=== PATIENT | male | born 1960 | race African-American/Black ===

== ENCOUNTER 2023-10-04 15:59 | Emergency (ER) | payer MEDICAID, OTHER ==
[~2023-10-04] VITALS: Ht 172.7 cm; Wt 68.0 kg
[2023-10-04 16:09] VITALS: O2SAT 98
[2023-10-04 17:08] LABS: BASOPHILS % 0.6 % (0.0-2.0); EOSINOPHILS % 1.5 % (0.0-5.0); HEMATOCRIT. 44.1 % (42.0-52.0); HEMOGLOBIN. 14.5 g/dL (14.0-18.0); LYMPHOCYTES % 18.7 % (20.0-50.0); MEAN CORPUSCULAR HEMOGLOBIN 30.9 pg (28.0-32.0); MEAN CORPUSCULAR HGB CONC 32.9 g/dL (31.0-37.0); MEAN CORPUSCULAR VOLUME 93.9 fL (80.0-94.0); MEAN PLATELET VOLUME 8.1 fl (7.4-10.4); NEUTROPHILS % 70.2 % (40.0-76.0); PLATELET 228 x1000/uL (130-400); RED CELL DISTRIBUTION WIDTH 13.7 % (11.6-14.6); WHITE BLOOD COUNT 6.8 x1000/uL (4.5-11.0)
[2023-10-04 17:17] LABS: INR 1.2; PROTHROMBIN TIME 13.2 sec (9.6-11.0)
[2023-10-04 17:24] LABS: ALANINE AMINOTRANSFERASE 10 IU/L (10-49); ALBUMIN 4.1 g/dL (3.2-4.8); ASPARTATE AMINOTRANSFERASE 21 IU/L (<34); BILIRUBIN TOTAL 0.2 mg/dL (0.1-1.0); CALCIUM 8.9 mg/dL (8.7-10.4); CARBON DIOXIDE 23 mEq/L (21-32); CHLORIDE 108 mEq/L (98-107); CREATINE KINASE 101 IU/L (46-171); CREATININE 0.9 mg/dL (0.6-1.3); GLUCOSE 109 mg/dL (70-105); LACTATE DEHYDROGENASE 155 IU/L (120-246); POTASSIUM 3.9 mEq/L (3.5-5.1); PROTEIN TOTAL 7.6 g/dL (6.0-8.3); SODIUM 139 mEq/L (136-145); UREA NITROGEN BLOOD 9 mg/dL (9-23)
[2023-10-04 17:40] LABS: ETHANOL BLOOD < 10 mg/dL (<10); TROPONIN I HIGH SENSITIVITY < 4 ng/L (3.0-53)
[2023-10-04] MEDS ORDERED: ONDANSETRON HCL 4MG/2ML INJ IV ONE (18:30)
[2023-10-04] MEDS: SODIUM CHLORIDE 0.9% 1000ML BAG (SEPSIS BOLUS) IV ONE (20:40)
[2023-10-04] MEDS: ONDANSETRON HCL 4MG/2ML INJ IV NR (20:55)
[2023-10-05] MEDS: DICYCLOMINE 10 MG/5 ML ORAL SYR PO STA (09:41)
[2023-10-05] MEDS: MAGNESIUM/ALUMINUM HYDROXIDE/SIMETHICONE 30ML UDC PO STA (09:41)
[2023-10-05] MEDS: FAMOTIDINE 20MG/2ML VIAL IV ONE (09:42)
[2023-10-05 13:50] VITALS: TEMP 98.8
[2023-10-05] MEDS: HYDROCODONE/ACETAMINOPHEN 5/325MG TABLET PO ONE (14:10)
[2023-10-05 16:51] VITALS: BP 140/90; PULSE 77; RESP 16
== END 2023-10-05 17:07 ==
LOC: ER 15:59
DX: R14.0 Abdominal distension (gaseous) (principal); R11.0 Nausea; I10 Essential (primary) hypertension; F12.10 Cannabis abuse, uncomplicated
CPT/HCPCS: 80053; 80320; 82550; 83880; 83605; 83615; 83690; 85025; 85610; 87040; 84484; 36415; 84145; 71045; 74176; 93005; 96361; 96374; 99285; J2405; J7030; G0480